=== PATIENT | male | born 1975 | race Caucasian/White ===

== ENCOUNTER 2017-03-03 06:04 | Emergency (ER) | payer MEDICAID ==
[~2017-03-03] VITALS: Ht 188 cm; Wt 86.2 kg
[~2017-03-03 06:04] MED LIST: LORA1TAB12; VITA2500
[2017-03-03 06:51] LABS: Basophils # (auto) 0.2 uL; Basophils % (auto) 2.1 % (0.0-2.0); CONDITION Y; Eosinophils # (auto) 0 uL; Eosinophils % (auto) 0.1 % (0.0-7.0); Hematocrit 49.3 % (41.0-53.0); Lymphocytes # (auto) 0.7 uL; Mean Corpuscular Hemoglobin 31.3 pg (28.0-32.0); Mean Corpuscular Hgb Conc. 34.5 g/dL (32.0-36.0); Mean Corpuscular Volume 90.7 fL (80.0-100.0); Mean Platelet Volume 8.8 fL (7.4-10.4); Monocytes # (auto) 0.4 uL; Monocytes % (auto) 5.1 % (0.0-12.0); Neutrophils # (auto) 6.9 uL; Neutrophils % (auto) 83.7 % (37.0-80.0); Platelet Count (auto) 162 10^3/uL (140-450); White Blood Cell 8.3 10^3/uL (4.4-10.8)
[2017-03-03] MEDS ORDERED: SODIUM CHLORIDE 0.9% 1,000 ML IV ONE (06:51)
[2017-03-03 07:03] LABS: Urine Bilirubin Negative (Negative); Urine Blood Negative /uL (Negative); Urine Color Yellow (Yellow); Urine Glucose Normal (Normal); Urine Ketone Negative (Negative); Urine Mucus FEW (None Seen); Urine Nitrite Negative (Negative); Urine RBC <1 /hpf (0 - 3); Urine Squamous Epithelial Cell FEW /hpf (<5); Urine Urobilinogen Normal (Negative); Urine pH 5.5 (5.0-8.0)
[2017-03-03 07:09] LABS: Albumin 4.2 g/dL (3.4-5.0); BUN/Creatinine Ratio 4.3; Calcium 8.8 mg/dL (8.5-10.1); Potassium 3.6 mmol/L (3.5-5.1)
[2017-03-03 07:12] LABS: Bilirubin, Total 1.1 mg/dL (0.2-1.0); Total Protein 8.9 g/dL (6.4-8.2)
[2017-03-03 07:24] LABS: Acetaminophen < 2.0 ug/mL (10-30)
[2017-03-03] MEDS ORDERED: THIAMINE INJ 100 MG, MULTIPLE VITAMIN 10 ML, FOLIC ACID 1 MG, MAGNESIUM SULF SDV 50% 8 ... IV ONE ×5 (07:30)
[2017-03-03] MEDS ORDERED: ONDANSETRON HCL 4 MG/2 ML VIAL IV ONE (09:00)
[2017-03-03] MEDS ORDERED: PANTOPRAZOLE 40 MG TAB PO ONE (09:00)
[2017-03-03] MEDS ORDERED: ALPRAZolam 0.5 MG TAB PO ONE (09:00)
[2017-03-03 11:24] VITALS: BP 132/75
[2017-03-04] MEDS ORDERED: THIAMINE INJ 100 MG, MULTIPLE VITAMIN 10 ML, FOLIC ACID 1 MG, MAGNESIUM SULF SDV 50% 8 ... IV SCH ×5 (12:00)
== END 2017-03-03 11:54 | disposition home or self-care (01) ==
LOC: EDBD 06:04 → ER 06:12
DX: K29.20 Alcoholic gastritis without bleeding (principal); F41.1 Generalized anxiety disorder; F43.10 Post-traumatic stress disorder, unspecified; F17.210 Nicotine dependence, cigarettes, uncomplicated
CPT/HCPCS: 36415; 71020; 80053; 80307; 80320; 80329; 81001; 83735; 84443; 85025; 93005; 94761; 96365; 96366; 96375; 99285; J2405; J3411; J3475; J7030